=== PATIENT | male | born 1955 | race Caucasian/White ===

== ENCOUNTER 2021-11-21 17:05 | Inpatient (IN) | payer OTHER, MEDICARE ==
[~2021-11-21 17:05] MED LIST: Iopamidol-370 76% 500 ML 1 ML ONE
[2021-11-21] MEDS ORDERED: Morphine 4 MG/ML VIAL ONE (18:22)
[2021-11-21] MEDS ORDERED: Promethazine HCl 25 MG/ML VIAL IM PRN (21:08)
[2021-11-21] MEDS ORDERED: Ondansetron PF 4 MG/2 ML Vial IVP PRN (21:08)
[2021-11-21] MEDS ORDERED: hydrALAZINE 20 MG/ML VIAL SLOW IVP PRN (21:08)
[2021-11-21] MEDS ORDERED: Morphine 2 MG/ML VIAL SLOW IVP PRN (21:23)
[2021-11-21] MEDS ORDERED: Cyclobenzaprine 10 MG TAB PO PRN (21:23)
[2021-11-21 22:10] LABS: #Basophils 0.1 thou/uL (0.0-0.2); #Eosinphils 0.2 thou/uL (0.0-0.7); #Lymphocytes 1.9 thou/uL (1.20-3.40); #Monocytes 0.7 thou/uL (0.11-0.59); #Neutrophils 4.1 thou/uL (1.40-6.50); %Basophils 1.1 % (0.0-1.0); %Eosinophils 3.2 % (0.0-10.0); %Lymphocytes 26.6 % (21.0-51.0); %Monocytes 10.6 % (0.0-10.0); %Neutrophils 58.5 % (42.0-75.0); Hemoglobin 13.1 g/dL (14.0-18.0); Mean Corpuscular Hemoglobin 31.5 pg (27.0-31.0); Mean Corpuscular Volume 98.6 fL (78.0-98.0); Mean Platelet Volume 12.2 fL (7.4-10.4); Platelet Count 85 thou/uL (130-400); RBC Distribution Width 12.9 % (11.5-14.5); Red Blood Cell (RBC) Count 4.15 mill/uL (4.70-6.10)
[2021-11-21 22:32] LABS: Anion Gap 12 mmol/L (10-20); BUN (Urea Nitrogen) 16 mg/dL (8.4-25.7); Calc. Creatinine Clearance 0 mL/min (70-130); Calcium 8.7 mg/dL (7.8-10.44); Carbon Dioxide 26 mmol/L (23-31); Chloride 104 mmol/L (98-107); Glucose 102 mg/dL (80-115); Magnesium 2.1 mg/dL (1.6-2.6); Phosphorus 3.3 mg/dL (2.3-4.7); Potassium 4.2 mmol/L (3.5-5.1); Sodium 138 mmol/L (136-145)
[2021-11-21 22:36] LABS: Band 6 % (5-11); Eosinophils 5 % (0-10); Large Platelets SLIGHT; Lymphocytes 33 % (21-51); MDiff Complete? YES; Monocytes 7 % (0-10); Neutrophil 46 % (42-75); Platelet Morphology Comment Appears Decreased; RBC Morphology Normal
[2021-11-21 22:57] VITALS: BMI 18.6
[2021-11-21] MEDS: Acetaminophen 500 MG TAB PO SCH (23:09)
[2021-11-21] MEDS: Sodium Chloride 0.9% 1,000 ML IV SCH (23:11)
[2021-11-22] MEDS: Sodium Chloride 0.9% 1,000 ML IV SCH (05:43)
[2021-11-22] MEDS: Acetaminophen 500 MG TAB PO SCH (05:44)
[2021-11-22 06:20] LABS: #Basophils 0.1 thou/uL (0.0-0.2); #Eosinphils 0.5 thou/uL (0.0-0.7); #Lymphocytes 1.7 thou/uL (1.20-3.40); #Monocytes 0.7 thou/uL (0.11-0.59); #Neutrophils 2.7 thou/uL (1.40-6.50); %Eosinophils 8.1 % (0.0-10.0); %Lymphocytes 30.8 % (21.0-51.0); %Monocytes 12.3 % (0.0-10.0); %Neutrophils 47.8 % (42.0-75.0); Hemoglobin 12.1 g/dL (14.0-18.0); Mean Corpuscular HGB CONC 32.1 g/dL (32.0-36.0); Mean Corpuscular Volume 99.6 fL (78.0-98.0); Mean Platelet Volume 12.5 fL (7.4-10.4); Platelet Count 72 thou/uL (130-400); RBC Distribution Width 12.9 % (11.5-14.5); Red Blood Cell (RBC) Count 3.78 mill/uL (4.70-6.10); White Blood Cell (WBC) Count 5.6 thou/uL (4.8-10.8)
[2021-11-22 06:27] LABS: PTT 30.9 sec (22.9-36.1); Prothrombin Time 12.9 sec (12.0-14.7)
[2021-11-22 06:40] LABS: Phosphorus 2.8 mg/dL (2.3-4.7)
[2021-11-22 06:43] LABS: Anion Gap 11 mmol/L (10-20); BUN (Urea Nitrogen) 15 mg/dL (8.4-25.7); Calc. Creatinine Clearance 75 mL/min (70-130); Calcium 8.3 mg/dL (7.8-10.44); Carbon Dioxide 24 mmol/L (23-31); Chloride 105 mmol/L (98-107); Glucose 96 mg/dL (80-115); Potassium 3.9 mmol/L (3.5-5.1); Sodium 136 mmol/L (136-145)
[2021-11-22] MEDS ORDERED: Folic Acid 1 MG TAB PO SCH (09:00)
[2021-11-22] MEDS ORDERED: Famotidine/PF 20 mg/2ml Vial SLOW IVP SCH (09:00)
[2021-11-22] MEDS ORDERED: Thiamine 100 MG TAB PO SCH (09:00)
[2021-11-22] MEDS ORDERED: Acetaminophen/Codeine 30-300mg Tablet PO PRN (09:39)
[2021-11-22] MEDS ORDERED: Acetaminophen 500 MG TAB PO SCH (09:39)
[2021-11-22] MEDS: Gabapentin 300 MG CAP PO SCH ×2 (10:02→14:19)
[2021-11-22] MEDS ORDERED: Acetaminophen 325 MG TAB PO SCH (12:00)
[2021-11-22 16:25] VITALS: BP 154/79; TEMP 98.1
[2021-11-23] MEDS ORDERED: Levothyroxine Sodium 50 MCG TAB PO SCH (06:00)
[2021-11-23] MEDS ORDERED: Bupropion 150 MG SR TAB PO SCH (09:00)
[2021-11-23] MEDS ORDERED: Atorvastatin Calcium 40 MG TAB PO SCH (09:00)
== END 2021-11-22 18:22 | disposition home or self-care (01) | DRG 87 ==
LOC: ERS 17:05 → SURG A 19:53
PROVIDERS: ADMIT Surgery; ATTEND Surgery
DX: S06.6X0A Traumatic subarachnoid hemorrhage without loss of consciousness, initial encounter (principal); Z20.822 Contact with and (suspected) exposure to COVID-19; S42.114A Nondisplaced fracture of body of scapula, right shoulder, initial encounter for closed fracture; E03.9 Hypothyroidism, unspecified; E78.5 Hyperlipidemia, unspecified; F17.210 Nicotine dependence, cigarettes, uncomplicated; I10 Essential (primary) hypertension; V29.9XXA Motorcycle rider (driver) (passenger) injured in unspecified traffic accident, initial encounter; S02.2XXA Fracture of nasal bones, initial encounter for closed fracture; Z79.890 Hormone replacement therapy; Z79.899 Other long term (current) drug therapy; Z79.82 Long term (current) use of aspirin
CPT/HCPCS: 36415; 70450; 70486; 71045; 71260; 72125; 74177; 80048; 83735; 84100; 85025; 85610; 85730; 93880; 96374; J2270; J7050; Q9967; S0028; U0003; U0005

== ENCOUNTER 2022-01-02 11:09 | Emergency (ER) | payer MEDICARE | END 2022-01-02 11:35 | disposition home or self-care (01) | LOC: ERS 11:09 | DX: S01.112D Laceration without foreign body of left eyelid and periocular area, subsequent encounter (principal) ==